=== PATIENT | female | born 1975 | race African-American/Black ===

== ENCOUNTER 2024-04-12 22:30 | Inpatient (IN) | payer MEDICAID ==
[~2024-04-12] VITALS: Ht 149.9 cm; Wt 101.6 kg
[2024-04-13] VITALS (7 sets, daily range): BP systolic 134–176; BP diastolic 91–106; TEMP 97.3–98.2; O2SAT 97–100
[2024-04-13] MEDS ORDERED: NITROGLYCERIN 30 GM TUBE TP PRN (01:00)
[2024-04-13] MEDS ORDERED: Z GUARD REMEDY 4 OZ OINT TP PRN (01:00)
[2024-04-13] MEDS ORDERED: MAGNESIUM HYDROXIDE 30 ML UDC PO PRN (01:00)
[2024-04-13] MEDS ORDERED: ACETAMINOPHEN 325 MG TABLET PO PRN (01:00)
[2024-04-13] MEDS: PANTOPRAZOLE 40 MG TABLET.DR PO SCH (07:42)
[2024-04-13] MEDS ORDERED: INSU100V7 SQ (08:43)
[2024-04-13] MEDS ORDERED: ASPI-1169 PO (08:43)
[2024-04-13] MEDS ORDERED: ISOS30TA86 PO (08:43)
[2024-04-13] MEDS ORDERED: HYDR100T27 PO (08:43)
[2024-04-13] MEDS ORDERED: AMLO5TAB4 PO (08:43)
[2024-04-13] MEDS ORDERED: SACU1TAB4 PO (08:43)
[2024-04-13] MEDS ORDERED: CARV25TA PO (08:43)
[2024-04-13] MEDS ORDERED: TORS20TA3 PO (08:43)
[2024-04-13] MEDS ORDERED: APIX5TAB PO (08:43)
[2024-04-13] MEDS ORDERED: CLON0.3P TD (08:43)
[2024-04-13] MEDS ORDERED: SEMA0.25 SQ (08:43)
[2024-04-13] MEDS ORDERED: PANT40TA2 PO (08:43)
[2024-04-13] MEDS: FUROSEMIDE 20 MG/2 ML VIAL IV SCH (08:46)
[2024-04-13] MEDS: ASPIRIN 81 MG TAB.CHEW PO SCH (08:46)
[2024-04-13 09:33] LABS: BASOPHILS # (AUTO) 0.1 K/uL (0.0-0.2); BASOPHILS % (AUTO) 1.4 % (0.0-2.0); EOSINOPHILS # (AUTO) 0.1 K/uL (0.0-0.7); EOSINOPHILS % (AUTO) 1.4 % (0.0-6.0); HEMATOCRIT 37 % (33-45); HEMOGLOBIN 11.3 g/dL (11.5-14.8); LYMPHOCYTES # (AUTO) 0.7 K/uL (0.8-4.8); LYMPHOCYTES % (AUTO) 13.5 % (20.0-44.0); MEAN CORPUSCULAR HEMOGLOBIN 20 PG (26.0-33.0); MEAN CORPUSCULAR HGB CONC 30 g/dl (31.0-36.0); MEAN CORPUSCULAR VOLUME 65 fL (82-100); MONOCYTES # (AUTO) 0.7 K/uL (0.1-1.30); MONOCYTES % (AUTO) 12.6 % (2.0-12.0); NEUTROPHILS # (AUTO) 3.9 K/uL (1.8-8.9); NEUTROPHILS % (AUTO) 71.1 % (43.0-81.0); PLATELET COUNT (AUTO) 219 K/uL (150-450); RED BLOOD CELL COUNT(AUTO) 5.71 MIL/uL (4.0-5.2); RED CELL DISTRIBUTION WIDTH 20.8 % (11.5-15.0); WHITE BLOOD COUNT (AUTO) 5.4 K/uL (4.3-11.0)
[2024-04-13 10:10] LABS: EOSINOPHILS % (MANUAL) 1 % (0-4); LYMPHOCYTES % (MANUAL) 11 % (16-48); MONOCYTES % (MANUAL) 10 % (0-11.0); NEUTROPHILS % (MANUAL) 77 (42-76)
[2024-04-13 10:11] LABS: ANISOCYTOSIS 1+; HYPOCHROMASIA 2+; PLATELET ESTIMATE ADEQUATE; SMUDGE CELLS FEW; TARGET CELLS 1+
[2024-04-13 10:26] LABS: ALANINE AMINOTRANSFERASE 19 U/L (12-78); ALBUMIN 2.8 g/dL (3.4-5.0); ALKALINE PHOSPHATASE 86 U/L (46-116); ASPARTATE AMINOTRANSFERASE 15 U/L (15-37); BILIRUBIN,DIRECT 0.5 mg/dL (0.0-0.2); BILIRUBIN,TOTAL 1.8 mg/dL (0.2-1.0); CALCIUM, SERUM 8.5 mg/dL (8.5-10.1); CARBON DIOXIDE 26 mmol/L (21-32); CHLORIDE 107 mmol/L (98-107); CREATININE 1.2 mg/dL (0.6-1.3); GLUCOSE 113 mg/dL (74-106); MAGNESIUM 1.8 mg/dL (1.8-2.4); PHOSPHORUS 3.6 mg/dL (2.5-4.9); POTASSIUM 2.9 mmol/L (3.5-5.1); SODIUM SERUM 144 mmol/L (136-145); TOTAL PROTEIN, SERUM 6.2 g/dL (6.4-8.2); UREA NITROGEN, BLOOD 14 mg/dL (7-18)
[2024-04-13] MEDS: POTASSIUM CHLORIDE 20 MEQ TAB.PRT.SR PO ONE (12:04)
[2024-04-13 12:39] LABS: PREGNANCY TEST URINE QUAL NEGATIVE (NEGATIVE)
[2024-04-13] MEDS ORDERED: PANTOPRAZOLE 40 MG TABLET.DR PO PRN (13:00)
[2024-04-13] MEDS: CARVEDILOL 12.5 MG TABLET PO SCH (16:32)
[2024-04-13] MEDS: hydrALAZINE HCL 50 MG TABLET PO SCH (16:33)
[2024-04-13] MEDS: AMLODIPINE BESYLATE 5 MG TABLET PO SCH (16:33)
[2024-04-13] MEDS: APIXABAN 5 MG TABLET PO SCH (16:34)
[2024-04-13] MEDS: SACUBITRIL/VALSARTAN 49/51MG TABLET PO SCH (21:09)
[2024-04-14] VITALS: BP 148/92; TEMP 97.6; O2SAT 99
[2024-04-14 04:00] VITALS: BP 154/84; TEMP 98.8; O2SAT 97
[2024-04-14 07:19] LABS: CALCIUM, SERUM 8.4 mg/dL (8.5-10.1); CREATININE 1.2 mg/dL (0.6-1.3)
[2024-04-14 07:27] LABS: BASOPHILS % (AUTO) 0.6 % (0.0-2.0); EOSINOPHILS # (AUTO) 0.1 K/uL (0.0-0.7); EOSINOPHILS % (AUTO) 1.8 % (0.0-6.0); HEMATOCRIT 37 % (33-45); HEMOGLOBIN 11.2 g/dL (11.5-14.8); LYMPHOCYTES # (AUTO) 0.8 K/uL (0.8-4.8); LYMPHOCYTES % (AUTO) 15.2 % (20.0-44.0); MEAN CORPUSCULAR HEMOGLOBIN 20 PG (26.0-33.0); MEAN CORPUSCULAR HGB CONC 31 g/dl (31.0-36.0); MEAN CORPUSCULAR VOLUME 65 fL (82-100); MONOCYTES # (AUTO) 0.7 K/uL (0.1-1.30); MONOCYTES % (AUTO) 12.4 % (2.0-12.0); NEUTROPHILS # (AUTO) 3.7 K/uL (1.8-8.9); PLATELET COUNT (AUTO) 224 K/uL (150-450); RED BLOOD CELL COUNT(AUTO) 5.67 MIL/uL (4.0-5.2); RED CELL DISTRIBUTION WIDTH 21.2 % (11.5-15.0); WHITE BLOOD COUNT (AUTO) 5.4 K/uL (4.3-11.0)
[2024-04-14 08:00] VITALS: BP 152/108; TEMP 97.9; O2SAT 95
[2024-04-14] MEDS: ISOSORBIDE MONONITRATE (30MG) 30 MG TAB.SR.24H PO SCH (08:44)
[2024-04-14] MEDS: FUROSEMIDE 20 MG/2 ML VIAL IV SCH (08:45)
[2024-04-14] MEDS ORDERED: ASPIRIN 81 MG TAB.CHEW PO SCH (09:00)
[2024-04-14 09:42] LABS: NEUTROPHILS % (MANUAL) 70 (42-76)
[2024-04-14 09:43] LABS: ANISOCYTOSIS 1+; BAND % (MANUAL) 1 % (0.0-5.0); EOSINOPHILS % (MANUAL) 1 % (0-4); HYPOCHROMASIA 1+; LYMPHOCYTES % (MANUAL) 15 % (16-48); MONOCYTES % (MANUAL) 13 % (0-11.0); PLATELET ESTIMATE ADEQUATE; SMUDGE CELLS FEW
[2024-04-14] MEDS: POTASSIUM CHLORIDE 20 MEQ TAB.PRT.SR PO SCH (11:10)
[2024-04-14 12:00] VITALS: BP 143/91; TEMP 98.4; O2SAT 96
[2024-04-14 16:00] VITALS: BP 154/70; TEMP 97.7; O2SAT 94
[2024-04-14 20:00] VITALS: BP 132/79; TEMP 97.5; O2SAT 97
[2024-04-15] VITALS (9 sets, daily range): BP systolic 109–144; BP diastolic 62–90; TEMP 97.5–97.7; O2SAT 86–99
[2024-04-15] MEDS: MAG HYDROX/AL HYDROX/SIMETH 30 ML UDC PO PRN (01:41)
[2024-04-15 07:22] LABS: BASOPHILS # (AUTO) 0.1 K/uL (0.0-0.2); BASOPHILS % (AUTO) 1.8 % (0.0-2.0); EOSINOPHILS # (AUTO) 0.1 K/uL (0.0-0.7); EOSINOPHILS % (AUTO) 1.9 % (0.0-6.0); HEMATOCRIT 44 % (33-45); HEMOGLOBIN 13.1 g/dL (11.5-14.8); LYMPHOCYTES # (AUTO) 0.9 K/uL (0.8-4.8); LYMPHOCYTES % (AUTO) 15.8 % (20.0-44.0); MEAN CORPUSCULAR HEMOGLOBIN 20 PG (26.0-33.0); MEAN CORPUSCULAR HGB CONC 30 g/dl (31.0-36.0); MEAN CORPUSCULAR VOLUME 66 fL (82-100); MONOCYTES # (AUTO) 0.8 K/uL (0.1-1.30); MONOCYTES % (AUTO) 13.7 % (2.0-12.0); NEUTROPHILS # (AUTO) 3.9 K/uL (1.8-8.9); NEUTROPHILS % (AUTO) 66.8 % (43.0-81.0); PLATELET COUNT (AUTO) 244 K/uL (150-450); RED BLOOD CELL COUNT(AUTO) 6.65 MIL/uL (4.0-5.2); RED CELL DISTRIBUTION WIDTH 20.9 % (11.5-15.0); WHITE BLOOD COUNT (AUTO) 5.8 K/uL (4.3-11.0)
[2024-04-15 07:31] LABS: CALCIUM, SERUM 8.4 mg/dL (8.5-10.1); CREATININE 1.2 mg/dL (0.6-1.3); POTASSIUM 2.9 mmol/L (3.5-5.1)
[2024-04-15] MEDS: POTASSIUM CHLORIDE 20 MEQ TAB.PRT.SR PO SCH (09:24)
[2024-04-16] VITALS: BP 113/68; TEMP 97.5; O2SAT 97
[2024-04-16 04:00] VITALS: BP 121/71; TEMP 97.3; O2SAT 97
[2024-04-16 07:42] LABS: CALCIUM, SERUM 8.5 mg/dL (8.5-10.1); CREATININE 1.4 mg/dL (0.6-1.3); POTASSIUM 3.7 mmol/L (3.5-5.1)
[2024-04-16 07:55] LABS: BASOPHILS # (AUTO) 0.1 K/uL (0.0-0.2); BASOPHILS % (AUTO) 0.9 % (0.0-2.0); EOSINOPHILS # (AUTO) 0.1 K/uL (0.0-0.7); EOSINOPHILS % (AUTO) 1.5 % (0.0-6.0); HEMATOCRIT 44 % (33-45); HEMOGLOBIN 13.1 g/dL (11.5-14.8); LYMPHOCYTES % (AUTO) 16.5 % (20.0-44.0); MEAN CORPUSCULAR HEMOGLOBIN 20 PG (26.0-33.0); MEAN CORPUSCULAR HGB CONC 30 g/dl (31.0-36.0); MEAN CORPUSCULAR VOLUME 65 fL (82-100); MONOCYTES % (AUTO) 16.4 % (2.0-12.0); NEUTROPHILS # (AUTO) 3.9 K/uL (1.8-8.9); NEUTROPHILS % (AUTO) 64.7 % (43.0-81.0); PLATELET COUNT (AUTO) 243 K/uL (150-450); RED BLOOD CELL COUNT(AUTO) 6.69 MIL/uL (4.0-5.2); RED CELL DISTRIBUTION WIDTH 21.3 % (11.5-15.0)
[2024-04-16 08:00] VITALS: BP 146/88; TEMP 97.4; O2SAT 97
[2024-04-16] MEDS ORDERED: ASPI-1169 PO (11:10)
[2024-04-16 12:00] VITALS: BP 140/88; TEMP 98.2; O2SAT 97
[2024-04-16 13:30] VITALS: BP 138/72
[2024-04-17] MEDS ORDERED: ASPI-1420 PO (09:52)
[2024-04-17] MEDS ORDERED: HYDR100T27 PO (10:02)
[2024-04-17] MEDS ORDERED: INSU100I30 SQ (10:02)
[2024-04-17] MEDS ORDERED: APIX5TAB PO (10:02)
[2024-04-17] MEDS ORDERED: ISOS30TA86 PO (10:02)
[2024-04-17] MEDS ORDERED: TORS20TA3 PO (10:02)
[2024-04-17] MEDS ORDERED: AMLO-212 PO ×2 (10:02)
[2024-04-17] MEDS ORDERED: SACU1TAB4 PO (10:02)
[2024-04-17] MEDS ORDERED: CARV25TA2 PO (10:02)
== END 2024-04-16 16:01 | disposition home or self-care (01) | DRG 194 ==
LOC: TELE1 04-13 00:46 → MEDSG1 04-16 09:51
PROVIDERS: ADMIT Nurse Practitioner Acute Care; ATTEND Internal Medicine
DX: I11.0 Hypertensive heart disease with heart failure (principal); J96.01 Acute respiratory failure with hypoxia; I21.A1 Myocardial infarction type 2; I50.43 Acute on chronic combined systolic (congestive) and diastolic (congestive) heart failure; E87.6 Hypokalemia; E80.6 Other disorders of bilirubin metabolism; I48.20 Chronic atrial fibrillation, unspecified; Z79.01 Long term (current) use of anticoagulants; E78.5 Hyperlipidemia, unspecified; E66.9 Obesity, unspecified; Z68.42 Body mass index [BMI] 45.0-49.9, adult; Z79.4 Long term (current) use of insulin; Z79.82 Long term (current) use of aspirin; Z79.899 Other long term (current) drug therapy; Z91.148 Patient's other noncompliance with medication regimen for other reason; I42.8 Other cardiomyopathies; Z79.85 Long-term (current) use of injectable non-insulin antidiabetic drugs
CPT/HCPCS: 36415; 71045-TC; 80048-TC; 80076-TC; 83735-TC; 83880; 84100-TC; 84443-TC; 84484-TC; 84703-TC; 85025-TC; 93307-TC; 97110-TC; 97112-TC; 97116-TC; 97530-TC; G0378; J1940; J7120